=== PATIENT | female | born 1985 | race Two or more races ===

== ENCOUNTER 2019-10-31 11:19 | Emergency (ER) | payer OTHER ==
[~2019-10-31] VITALS: Ht 165.1 cm; Wt 90.7 kg
[2019-10-31 11:30] VITALS: BP 151/89
== END 2019-10-31 13:35 | disposition home or self-care (01) ==
LOC: ER 11:19
DX: H66.93 Otitis media, unspecified, bilateral (principal); J03.90 Acute tonsillitis, unspecified
CPT/HCPCS: 71046